=== PATIENT | male | born 1955 | race Caucasian/White ===

== ENCOUNTER 2017-10-10 12:12 | Inpatient (IN) | payer OTHER ==
[2017-10-10] VITALS (9 sets, daily range): BP systolic 111–146; BP diastolic 58–86
[~2017-10-10] VITALS: Ht 172.7 cm; Wt 70.8 kg
[2017-10-10] MEDS: SODIUM CHLORIDE 0.9% 1,000 ML IV SCH (08:37)
[2017-10-10 13:38] LABS: Basophils # (auto) 0 uL; Eosinophils # (auto) 0 uL; Monocytes # (auto) 0.1 uL; Neutrophils # (auto) 1.8 uL; Red Blood Cells 1.53 10^6/uL (4.5-5.90)
[2017-10-10 13:39] LABS: Basophils % (auto) 0.1 % (0.0-2.0); Eosinophils % (auto) 0.3 % (0.0-7.0); Lymphocytes # (auto) 0.8 uL; Lymphocytes % (auto) 30.9 % (10.0-50.0); Mean Corpuscular Hemoglobin 44.6 pg (28.0-32.0); Mean Corpuscular Hgb Conc. 35.9 g/dL (32.0-36.0); Mean Corpuscular Volume 124.3 fL (80.0-100.0); Monocytes % (auto) 2.8 % (0.0-12.0); Neutrophils % (auto) 65.9 % (37.0-80.0); Nucleated Red Blood Cells % 0.1 %; Platelet Count (auto) 104 10^3/uL (140-450); White Blood Cell 2.7 10^3/uL (4.4-10.8)
[2017-10-10 13:57] LABS: Hemoglobin 6.8 g/dL (13.5-17.5)
[2017-10-10 14:04] LABS: Alanine Aminotransferase 32 U/L (16-61); Albumin 4.1 g/dL (3.4-5.0); Alkaline Phosphatase 75 U/L (45-117); Anion Gap 12 (5-15); Aspartate Aminotransferase 43 U/L (15-37); BUN/Creatinine Ratio 28.9; Bilirubin, Total 3.1 mg/dL (0.2-1.0); Blood Urea Nitrogen 24 mg/dL (7-18); Carbon Dioxide 22 mmol/L (21-32); Chloride 104 mmol/L (98-107); GFR African American 120 mL/min; GFR Non-African American 99 mL/min; Glucose 93 mg/dL (74-106); Magnesium 2.4 mg/dL (1.6-2.6); Potassium 3.6 mmol/L (3.5-5.1); Sodium 138 mmol/L (136-145)
[2017-10-10] MEDS ORDERED: SODIUM CHLORIDE 0.9% 1,000 ML IVB ONE (14:45)
[2017-10-10 15:21] LABS: INR 1.02 (0.9-1.15); Partial Thromboplastin Time 26.4 sec (22.64-33.71); Prothrombin Time 11.1 sec (9.37-12.3)
[2017-10-10 15:30] LABS: Magnesium 2.1 mg/dL (1.6-2.6)
[2017-10-10] MEDS ORDERED: MORPHINE SULFATE 4 MG/ML SYR/VIAL IV PRN (18:00)
[2017-10-10] MEDS ORDERED: NITROGLYCERIN 0.4 MG SL TAB SL PRN (18:00)
[2017-10-10 21:17] LABS: Basophils # (auto) 0 uL; Eosinophils # (auto) 0 uL; Lymphocytes # (auto) 0.7 uL; Monocytes # (auto) 0.1 uL; Neutrophils # (auto) 1.3 uL; White Blood Cell 2.1 10^3/uL (4.4-10.8)
[2017-10-10 21:19] LABS: Basophils % (auto) 0.1 % (0.0-2.0); Eosinophils % (auto) 0.3 % (0.0-7.0); Hemoglobin 7.3 g/dL (13.5-17.5); Lymphocytes % (auto) 34.5 % (10.0-50.0); Mean Corpuscular Hemoglobin 41.7 pg (28.0-32.0); Mean Corpuscular Hgb Conc. 36.2 g/dL (32.0-36.0); Mean Corpuscular Volume 115.3 fL (80.0-100.0); Monocytes % (auto) 3.5 % (0.0-12.0); Neutrophils % (auto) 61.6 % (37.0-80.0); Nucleated Red Blood Cells % 0.1 %; Platelet Count (auto) 75 10^3/uL (140-450); Red Blood Cells 1.74 10^6/uL (4.5-5.90)
[2017-10-10 21:35] LABS: Red Cell Distribution Width 25.4 % (11.8-14.3)
[2017-10-10] MEDS: PANTOPRAZOLE 40 MG/10 ML VIAL IV SCH (22:27)
[2017-10-11 00:05] VITALS: BP 126/73
[2017-10-11] MEDS: SODIUM CHLORIDE 0.9% 1,000 ML IV SCH ×4 (00:37→21:27)
[2017-10-11 04:36] VITALS: BP 150/85
[2017-10-11 04:39] LABS: Alcohol, Urine < 3.0 mg/dL (0-5); Amphetamine Screen, Urine NEGATIVE (NEGATIVE); Barbiturate Scree,Urine NEGATIVE (NEGATIVE); Benzodiazephine Screen, Urine NEGATIVE (NEGATIVE); Cannabinoid Screen, Urine NEGATIVE (NEGATIVE); Cocaine Screen, Urine NEGATIVE (NEGATIVE); Opiate Scree,Urine NEGATIVE (NEGATIVE); Phencyclidine Screen, Urine NEGATIVE (NEGATIVE)
[2017-10-11 04:44] LABS: Urine Bacteria NONE SEEN /hpf (None Seen); Urine Blood Negative /uL (Negative); Urine Specific Gravity 1.021 (1.001-1.035); Urine WBC 1 /hpf (0 - 3)
[2017-10-11 06:22] LABS: Basophils # (auto) 0 uL; Basophils % (auto) 0.2 % (0.0-2.0); Eosinophils # (auto) 0 uL; Monocytes # (auto) 0.1 uL
[2017-10-11 06:30] LABS: Eosinophils % (auto) 1.5 % (0.0-7.0); Hematocrit 25.5 % (41.0-53.0); Hemoglobin 9.4 g/dL (13.5-17.5); Lymphocytes % (auto) 49.8 % (10.0-50.0); Mean Corpuscular Hemoglobin 38.9 pg (28.0-32.0); Mean Corpuscular Hgb Conc. 36.7 g/dL (32.0-36.0); Mean Corpuscular Volume 105.8 fL (80.0-100.0); Monocytes % (auto) 2.6 % (0.0-12.0); Neutrophils % (auto) 45.9 % (37.0-80.0); Nucleated Red Blood Cells % 0.1 %; Platelet Count (auto) 76 10^3/uL (140-450); Red Blood Cells 2.41 10^6/uL (4.5-5.90); White Blood Cell 2.1 10^3/uL (4.4-10.8)
[2017-10-11 06:32] LABS: Red Cell Distribution Width 29.8 % (11.8-14.3)
[2017-10-11 06:49] LABS: Folate (Folic Acid) 17.71 ng/mL (5.38-24)
[2017-10-11 06:51] LABS: Albumin 3.7 g/dL (3.4-5.0); BUN/Creatinine Ratio 28.4; Bilirubin, Total 3.1 mg/dL (0.2-1.0); Calcium 8.5 mg/dL (8.5-10.1); Potassium 3.8 mmol/L (3.5-5.1); Total Protein 6.4 g/dL (6.4-8.2)
[2017-10-11 08:36] VITALS: BP 133/87
[2017-10-11 08:52] LABS: INR 1.04 (0.9-1.15); Partial Thromboplastin Time 29.4 sec (22.64-33.71); Prothrombin Time 11.3 sec (9.37-12.3)
[2017-10-11] MEDS ORDERED: IOHEXOL 300 MG/ML 100ML BOTTLE IJ ONE (09:26)
[2017-10-11] MEDS ORDERED: IOHEXOL 350 MG/ML 100ML IJ ONE (10:05)
[2017-10-11] MEDS: PANTOPRAZOLE 40 MG/10 ML VIAL IV SCH ×2 (10:07→21:27)
[2017-10-11] MEDS ORDERED: SODIUM CHLORIDE LOCK 10 ML ONE (10:11)
[2017-10-11] MEDS ORDERED: fentaNYL CITRATE 100 MCG/2 ML VL ONE (10:12)
[2017-10-11] MEDS ORDERED: LIDOCAINE VISCOUS 2% 15ML UD ONE (10:12)
[2017-10-11] MEDS ORDERED: MIDAZOLAM HCL 5 MG/ML-1ML VIAL ONE (10:12)
[2017-10-11] MEDS ORDERED: diphenhdrAMINE HCL 50 MG/1 ML VL ONE (10:13)
[2017-10-11 10:40] LABS: Hepatitis B Surface Antibody Negative
[2017-10-11] MEDS ORDERED: GOLYTELY 4L KIT PO ONE (10:45)
[2017-10-11 10:50] LABS: Hepatitis B Surface Antigen Negative (Negative)
[2017-10-11 11:17] LABS: Hepatitis B Core IgM Negative; Hepatitis C Antibody Negative (Negative)
[2017-10-11 11:18] LABS: Hepatitis A Total Antibody Positive; Hepatitis B Core Total AB Negative
[2017-10-11 11:19] LABS: Hepatitis A Ab IgM Negative
[2017-10-11 12:27] VITALS: BP 136/72
[2017-10-11] MEDS: CYANOCOBALAMIN (B-12) 1000 MCG/1 ML VIAL SUBCUT SCH (14:45)
[2017-10-11 17:00] VITALS: BP 133/82
[2017-10-11 21:47] VITALS: BP 139/75
[2017-10-12 05:09] VITALS: BP 126/78
[2017-10-12] MEDS: SODIUM CHLORIDE 0.9% 1,000 ML IV SCH ×4 (05:21→22:56)
[2017-10-12] MEDS ORDERED: SODIUM CHLORIDE LOCK 10 ML ONE (08:15)
[2017-10-12] MEDS ORDERED: LIDOCAINE VISCOUS 2% 15ML UD ONE (08:15)
[2017-10-12] MEDS ORDERED: diphenhdrAMINE HCL 50 MG/1 ML VL ONE (08:16)
[2017-10-12 09:00] VITALS: BP 144/86
[2017-10-12] MEDS: PANTOPRAZOLE 40 MG/10 ML VIAL IV SCH ×2 (09:57→22:02)
[2017-10-12] MEDS: CYANOCOBALAMIN (B-12) 1000 MCG/1 ML VIAL SUBCUT SCH (09:57)
[2017-10-12] MEDS ORDERED: HYDROmorphone HCL 2 MG/ML VL IV PRN (10:00)
[2017-10-12] MEDS: MIDAZOLAM HCL 5 MG/ML-1ML VIAL ONE ×2 (10:06→10:10)
[2017-10-12] MEDS: fentaNYL CITRATE 100 MCG/2 ML VL ONE ×2 (10:06→10:10)
[2017-10-12 11:56] LABS: Basophils # (auto) 0 uL; Basophils % (auto) 0.3 % (0.0-2.0); Eosinophils # (auto) 0.1 uL; Hemoglobin 8.3 g/dL (13.5-17.5); Lymphocytes # (auto) 1.1 uL; Monocytes # (auto) 0.1 uL; Monocytes % (auto) 3.7 % (0.0-12.0); Nucleated Red Blood Cells % 0.1 %; Red Blood Cells 2.21 10^6/uL (4.5-5.90); White Blood Cell 2.3 10^3/uL (4.4-10.8)
[2017-10-12 11:57] LABS: Eosinophils % (auto) 5.6 % (0.0-7.0); Lymphocytes % (auto) 47.9 % (10.0-50.0); Mean Corpuscular Hemoglobin 37.6 pg (28.0-32.0); Mean Corpuscular Hgb Conc. 34.6 g/dL (32.0-36.0); Mean Corpuscular Volume 108.8 fL (80.0-100.0); Neutrophils % (auto) 42.5 % (37.0-80.0); Platelet Count (auto) 83 10^3/uL (140-450)
[2017-10-12 12:00] VITALS: BP 144/83
[2017-10-12 12:03] LABS: Red Cell Distribution Width 29.4 % (11.8-14.3)
[2017-10-12 12:12] LABS: Albumin 3.4 g/dL (3.4-5.0); Calcium 7.9 mg/dL (8.5-10.1); Potassium 3.1 mmol/L (3.5-5.1)
[2017-10-12 12:15] LABS: Bilirubin, Total 1.8 mg/dL (0.2-1.0); Total Protein 5.5 g/dL (6.4-8.2)
[2017-10-12] MEDS ORDERED: GADOPENTETATE DIMEGLUMINE (10MMOL/20 ML) VIAL IV ONE (13:24)
[2017-10-12] MEDS ORDERED: MORPHINE SULFATE 4 MG/ML SYR/VIAL IV ONE (13:45)
[2017-10-12 16:59] VITALS: BP 138/80
[2017-10-12 22:00] VITALS: BP 130/75
[2017-10-13 05:00] VITALS: BP 144/75
[2017-10-13 05:53] LABS: Basophils # (auto) 0 uL; Eosinophils # (auto) 0.2 uL; Hemoglobin 7.9 g/dL (13.5-17.5); Lymphocytes # (auto) 0.8 uL; Mean Corpuscular Hgb Conc. 35.6 g/dL (32.0-36.0); Monocytes # (auto) 0.2 uL; Neutrophils # (auto) 1.2 uL
[2017-10-13 05:56] LABS: Basophils % (auto) 0.2 % (0.0-2.0); Hematocrit 22.1 % (41.0-53.0); Lymphocytes % (auto) 32.6 % (10.0-50.0); Mean Corpuscular Hemoglobin 38.3 pg (28.0-32.0); Mean Corpuscular Volume 107.4 fL (80.0-100.0); Monocytes % (auto) 8.5 % (0.0-12.0); Neutrophils % (auto) 51.7 % (37.0-80.0); Nucleated Red Blood Cells % 0.1 %; Platelet Count (auto) 67 10^3/uL (140-450); Red Blood Cells 2.06 10^6/uL (4.5-5.90); White Blood Cell 2.3 10^3/uL (4.4-10.8)
[2017-10-13] MEDS: SODIUM CHLORIDE 0.9% 1,000 ML IV SCH ×3 (05:56→19:36)
[2017-10-13 06:08] LABS: BUN/Creatinine Ratio 4.9; Bilirubin, Total 1.4 mg/dL (0.2-1.0); Calcium 7.7 mg/dL (8.5-10.1); Potassium 3.3 mmol/L (3.5-5.1); Total Protein 5.1 g/dL (6.4-8.2)
[2017-10-13 06:17] LABS: Red Cell Distribution Width 29.1 % (11.8-14.3)
[2017-10-13 08:49] VITALS: BP 146/89
[2017-10-13] MEDS: PANTOPRAZOLE 40 MG/10 ML VIAL IV SCH ×2 (09:48→22:03)
[2017-10-13] MEDS: CYANOCOBALAMIN (B-12) 1000 MCG/1 ML VIAL SUBCUT SCH (09:48)
[2017-10-13 12:00] VITALS: BP 132/76
[2017-10-13 22:00] VITALS: BP 137/71
[2017-10-14] MEDS: SODIUM CHLORIDE 0.9% 1,000 ML IV SCH ×4 (01:48→21:59)
[2017-10-14 05:46] VITALS: BP 121/97
[2017-10-14 09:00] VITALS: BP 127/70
[2017-10-14] MEDS: PANTOPRAZOLE 40 MG/10 ML VIAL IV SCH ×2 (09:16→21:59)
[2017-10-14] MEDS: CYANOCOBALAMIN (B-12) 1000 MCG/1 ML VIAL SUBCUT SCH (09:17)
[2017-10-14 13:00] VITALS: BP 114/61
[2017-10-14 17:00] VITALS: BP 134/76
[2017-10-14 22:00] VITALS: BP 130/65
[2017-10-15] MEDS: SODIUM CHLORIDE 0.9% 1,000 ML IV SCH ×3 (04:36→18:05)
[2017-10-15 05:44] VITALS: BP 134/74
[2017-10-15 07:53] VITALS: BP 127/76
[2017-10-15] MEDS: CYANOCOBALAMIN (B-12) 1000 MCG/1 ML VIAL SUBCUT SCH ×2 (10:21→10:24)
[2017-10-15] MEDS: PANTOPRAZOLE 40 MG/10 ML VIAL IV SCH ×2 (10:22→21:04)
[2017-10-15 11:30] VITALS: BP 120/59
[2017-10-15 16:30] VITALS: BP 135/79
[2017-10-15 22:18] VITALS: BP 146/84
[2017-10-16 04:56] VITALS: BP 132/77
[2017-10-16] MEDS: SODIUM CHLORIDE 0.9% 1,000 ML IV SCH ×3 (05:07→13:57)
[2017-10-16 07:47] LABS: Basophils # (auto) 0 uL; Basophils % (auto) 0.1 % (0.0-2.0); Eosinophils # (auto) 0.1 uL; Hemoglobin 8.1 g/dL (13.5-17.5); Lymphocytes % (auto) 23.6 % (10.0-50.0); White Blood Cell 2.8 10^3/uL (4.4-10.8)
[2017-10-16 07:48] LABS: Albumin 2.9 g/dL (3.4-5.0); BUN/Creatinine Ratio 18.4; Calcium 8.1 mg/dL (8.5-10.1); Potassium 3.3 mmol/L (3.5-5.1)
[2017-10-16 07:50] LABS: Eosinophils % (auto) 4.3 % (0.0-7.0); Hematocrit 24.2 % (41.0-53.0); Lymphocytes # (auto) 0.7 uL; Mean Corpuscular Hemoglobin 36.6 pg (28.0-32.0); Mean Corpuscular Hgb Conc. 33.5 g/dL (32.0-36.0); Mean Corpuscular Volume 109.1 fL (80.0-100.0); Monocytes # (auto) 0.5 uL; Monocytes % (auto) 16.5 % (0.0-12.0); Neutrophils # (auto) 1.6 uL; Neutrophils % (auto) 55.5 % (37.0-80.0); Nucleated Red Blood Cells % 0.2 %; Platelet Count (auto) 77 10^3/uL (140-450); Red Blood Cells 2.22 10^6/uL (4.5-5.90)
[2017-10-16 07:51] LABS: Bilirubin, Total 1.2 mg/dL (0.2-1.0); Total Protein 5.4 g/dL (6.4-8.2)
[2017-10-16 07:57] LABS: Red Cell Distribution Width 27.4 % (11.8-14.3)
[2017-10-16 08:33] VITALS: BP 145/86
[2017-10-16] MEDS: PANTOPRAZOLE 40 MG/10 ML VIAL IV SCH ×2 (09:10→21:20)
[2017-10-16 12:05] VITALS: BP 132/74
[2017-10-16 17:18] VITALS: BP 141/85
[2017-10-16 22:00] VITALS: BP 138/77
[2017-10-17] MEDS: SODIUM CHLORIDE 0.9% 1,000 ML IV SCH ×3 (03:17→09:57)
[2017-10-17 05:00] VITALS: BP 137/78
[2017-10-17 07:43] LABS: Basophils # (auto) 0 uL; Basophils % (auto) 0.1 % (0.0-2.0); Eosinophils # (auto) 0.2 uL; Hemoglobin 8.3 g/dL (13.5-17.5); Lymphocytes # (auto) 0.8 uL; Neutrophils # (auto) 1.8 uL; Neutrophils % (auto) 54.7 % (37.0-80.0); Nucleated Red Blood Cells % 0.1 %; White Blood Cell 3.3 10^3/uL (4.4-10.8)
[2017-10-17 07:46] LABS: Eosinophils % (auto) 6.2 % (0.0-7.0); Hematocrit 24.3 % (41.0-53.0); Mean Corpuscular Hgb Conc. 34.3 g/dL (32.0-36.0); Mean Corpuscular Volume 105.1 fL (80.0-100.0); Monocytes # (auto) 0.5 uL; Platelet Count (auto) 120 10^3/uL (140-450); Red Blood Cells 2.32 10^6/uL (4.5-5.90)
[2017-10-17 08:02] LABS: Red Cell Distribution Width 26.9 % (11.8-14.3)
[2017-10-17 09:00] VITALS: BP 147/79
[2017-10-17] MEDS: PANTOPRAZOLE 40 MG/10 ML VIAL IV SCH (09:38)
[2017-10-17 13:00] VITALS: BP 120/69
[2017-10-17] MEDS ORDERED: POTASSIUM CHL 20 Meq TABLET PO ONE (13:00)
== END 2017-10-17 16:30 | DRG 811 ==
LOC: ER 12:12 → TELE 12:13 → EEVIPCON 12:13 → TELE-E-ADS 20:10 → EAST 10-13 23:59
PROVIDERS: ADMIT Internal Medicine; ATTEND Internal Medicine
PROC: 30233N1 Transfusion of Nonautologous Red Blood Cells into Peripheral Vein, Percutaneous Approach (ICD-10-PCS; 2017-10-10)
PROC: 0DB68ZX Excision of Stomach, Via Natural or Artificial Opening Endoscopic, Diagnostic (ICD-10-PCS; principal; 2017-10-11 10:23)
PROC: 0DJD8ZZ Inspection of Lower Intestinal Tract, Via Natural or Artificial Opening Endoscopic (ICD-10-PCS; 2017-10-12)
PROC: 07DR3ZX Extraction of Iliac Bone Marrow, Percutaneous Approach, Diagnostic (ICD-10-PCS; 2017-10-12)
DX: D46.9 Myelodysplastic syndrome, unspecified (principal); K29.51 Unspecified chronic gastritis with bleeding; D61.818 Other pancytopenia; K64.8 Other hemorrhoids; N28.1 Cyst of kidney, acquired; D35.01 Benign neoplasm of right adrenal gland; K40.20 Bilateral inguinal hernia, without obstruction or gangrene, not specified as recurrent; D51.0 Vitamin B12 deficiency anemia due to intrinsic factor deficiency; I10 Essential (primary) hypertension; E78.5 Hyperlipidemia, unspecified; K57.30 Diverticulosis of large intestine without perforation or abscess without bleeding; E78.00 Pure hypercholesterolemia, unspecified; I70.0 Atherosclerosis of aorta; J44.9 Chronic obstructive pulmonary disease, unspecified; K59.00 Constipation, unspecified; N20.0 Calculus of kidney; Z87.891 Personal history of nicotine dependence; Z82.49 Family history of ischemic heart disease and other diseases of the circulatory system; Z90.49 Acquired absence of other specified parts of digestive tract
CPT/HCPCS: 36415; 36430; 43239; 45378; 70450; 70553; 71045; 71260; 74176; 76775; 80053; 80074; 80307; 81001; 82140; 82270; 82378; 82607; 82746; 83540; 83615; 83735; 84443; 84484; 85025; 85045; 85097; 85540; 85610; 85730; 86301; 86704; 86706; 86708; 86803; 86850; 86900; 86901; 86920; 87340; 88185; 88291; 93005; 94761; 96360; 99291; C9113; J2250